=== PATIENT | female | born 1995 | race Caucasian/White ===

== ENCOUNTER 2018-03-20 02:25 | Observation (INO) ==
[2018-03-20] MEDS ORDERED: Ondansetron 4 MG/2 ML VIAL IVP ONE (02:31)
--- NOTE | 2018-03-20 02:32 | Emergency Department Note ---
Disposition Clinical Impression: Ankle dislocation Qualifiers: Encounter type: initial encounter Laterality: right Qualified Code(s): S93.04XA - Dislocation of right ankle joint, initial encounter Ankle syndesmosis disruption Qualifiers: Encounter type: initial encounter Laterality: right Qualified Code(s): S93.431A - Sprain of tibiofibular ligament of right ankle, initial encounter Closed fibular fracture Qualifiers: Encounter type: initial encounter Fibula location: shaft Fracture morphology: unspecified fracture morphology Laterality: right Qualified Code(s): S82.401A - Unspecified fracture of shaft of right fibula, initial encounter for closed fracture Disposition: Admitted As Inpatient Condition: Fair Time of Disposition: 06:07 Lower Extremity Injury HPI - General Chief Complaint: ED Extremity Injury, Lower Stated Complaint: right ankle injury Time Seen by Provider: 03/20/18 02:26 Source: patient Mode of arrival: ambulatory Limitations: no limitations Nursing Notes Reviewed: Yes Vital Signs Reviewed: Yes - History of Present Illness HPI Narrative: Patient is a 23-year-old female who presents to [facility] ED with a chief complaint of ankle pain on the right foot. States she walked out of the bar and fell. Denies any head injury or loss of consciousness. She had been drinking tonight. 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 Past Medical History - Past Medical History Attestation: Yes The following information was validated with the patient. 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 syndrome, other - Social History Smoking Status: Current every day smoker Smokeless Tobacco Status: No Alcohol use: Reports: occasionally Drug use: Reports: marijuana Physical Exam - General Limitations: no limitations General appearance: alert - Head Head exam: atraumatic, normocephalic, normal inspection - Eye Eye exam: Present: normal appearance, PERRL, EOMI - ENT ENT exam: normal exam, normal oropharynx, mucous membranes moist - Neck Neck exam: Present: normal inspection, full ROM, trachea midline - Chest Chest inspection: Present: normal inspection, symmetric chest wall rise - Respiratory Respiratory exam: Present: normal lung sounds bilaterally - Cardiovascular Cardiovascular exam: Present: normal rhythm, tachycardia - Abdominal Exam Abdominal exam: Present: soft, Non-Tender. Absent: tenderness, distention, guarding, rebound, rigidity - Expanded Lower Extremity Exam Lower leg exam: Present: tenderness (over fibular head) Ankle exam: Present: deformity, dislocation. Absent: abrasion, erythema Neurovascular/Tendon exam: Present: normal capillary refill. Absent: pulse deficit Gait: not tested/not observed - Back Exam Back exam: Present: normal inspection, full ROM. Absent: tenderness - Neurological Exam Neurological exam: Present: alert, oriented X3 - Psychiatric Psychiatric exam: Present: normal affect, normal mood - Skin Skin exam: Present: warm, dry, intact, normal color Course Course Narrative: Patient seen and examined. Right ankle deformity. Patient does have tenderness over the fibular head. We will get tib-fib and ankle x-rays of the right lower extremity. Fentanyl ordered for pain and Zofran for nausea. No other injury elsewhere. - Reevaluation(s) Reevaluation #1: Procedural sedation was done with respiratory therapy at the bedside. Propofol was used. Patient's ankle was reduced successfully without difficulty. She is placed in a long leg splint. Case was discussed with orthopedic Dr. Reinoso who will see the patient in consultation. States he is planning on doing surgery on her tomorrow. Time: 06:06 Vital Signs Temperature 97.6 F 03/20/18 02:26 Pulse Rate 100 03/20/18 02:26 Respiratory Rate 20 03/20/18 02:26 Blood Pressure 115/90 03/20/18 02:26 O2 Sat by Pulse Oximetry 99 03/20/18 02:26 Temperature 98.2 F 03/20/18 05:54 Pulse Rate 88 03/20/18 05:54 Respiratory Rate 16 03/20/18 05:54 Blood Pressure 109/68 03/20/18 05:54 O2 Sat by Pulse Oximetry 98 03/20/18 05:54 Oxygen Delivery Oxygen Delivery [0431] Room Air Oxygen Delivery [0428] Room Air Oxygen Delivery [0424] Room Air Oxygen Delivery [0421] Room Air Oxygen Delivery Room Air Procedures - Orthopedic Joint Reduction Joint #1 Consent Obtained: verbal consent Time Out Performed: Yes Side: right Joint Reduction Location: ankle ASA Classification: CLASS I-Normal, healthy patient Analgesia: procedural sedation Technique used: traction/counter-traction Post-reduction neuro exam: intact Post-reduction vascular: intact Post Reduction X-Ray Obtained: Yes Post Reduction X-Ray Results: reduced Splint Applied: Yes Patient Tolerated Procedure: well Extremity Injury, Lower - Medical Records Medical records reviewed: Yes I reviewed the patient's medical records. - Radiology Data Radiology results reviewed: Yes I reviewed the patient's radiology results. Tibia/Fibula X-Ray 03/20/18 02:27 IMPRESSION: 1. Acute fracture of the mid to proximal fibula. 2. Lateral ankle dislocation with disruption of the ankle syndesmosis. D/ / Noel Dykes MD / Noel Dykes MD Interpreting Provider: Noel Dykes MD Ankle X-Ray 03/20/18 04:49 IMPRESSION: Significantly improved alignment at the ankle with no definite ankle fracture. D/ / Noel Dykes MD / Noel Dykes MD Interpreting Provider: Noel Dykes MD
[2018-03-20] MEDS ORDERED: *HR* FentaNYL (PF) 100 MCG/2 ML VIAL IVP ONE ×2 (02:39→03:43)
[2018-03-20] MEDS ORDERED: *HR* Propofol 500 MG/50 ML BOTTLE IVP ONE (03:11)
[2018-03-20] MEDS ORDERED: *HR* FentaNYL (PF) 100 MCG/2 ML VIAL ONE (03:47)
--- NOTE | 2018-03-20 05:18 | Emergency Department Note ---
Disposition Clinical Impression: Ankle dislocation Qualifiers: Encounter type: initial encounter Laterality: right Qualified Code(s): S93.04XA - Dislocation of right ankle joint, initial encounter Ankle syndesmosis disruption Qualifiers: Encounter type: initial encounter Laterality: right Qualified Code(s): S93.431A - Sprain of tibiofibular ligament of right ankle, initial encounter Closed fibular fracture Qualifiers: Encounter type: initial encounter Fibula location: shaft Fracture morphology: unspecified fracture morphology Laterality: right Qualified Code(s): S82.401A - Unspecified fracture of shaft of right fibula, initial encounter for closed fracture Disposition: Admitted As Inpatient Condition: Fair General Adult HPI - General Chief complaint: ED Extremity Injury, Lower Stated complaint: right ankle injury Time Seen by Provider: 03/20/18 02:26 Source: patient Mode of arrival: ambulatory Limitations: no limitations Nursing Notes Reviewed: Yes Vital Signs Reviewed: Yes - History of Present Illness Pain Scale: 5 - Related Data Allergies Allergy/AdvReac Type Severity Reaction Status Date / Time No Known Allergies Allergy Verified 11/09/16 00:23 Past Medical History - Past Medical History Medical history: Reports: no medical history, other Psychiatric history: Reports: no psych 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, 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 - Social History Smoking Status: Current every day smoker Smokeless Tobacco Status: No Alcohol use: Reports: occasionally Drug use: Reports: marijuana Physical Exam - General Limitations: no limitations General appearance: alert Course Vital Signs Temperature 97.6 F 03/20/18 02:26 Pulse Rate 100 03/20/18 02:26 Respiratory Rate 20 03/20/18 02:26 Blood Pressure 115/90 03/20/18 02:26 O2 Sat by Pulse Oximetry 99 03/20/18 02:26 Temperature 98.2 F 03/20/18 05:54 Pulse Rate 88 03/20/18 05:54 Respiratory Rate 16 03/20/18 05:54 Blood Pressure 109/68 03/20/18 05:54 O2 Sat by Pulse Oximetry 98 03/20/18 05:54 Oxygen Delivery Oxygen Delivery [0431] Room Air Oxygen Delivery [0428] Room Air Oxygen Delivery [0424] Room Air Oxygen Delivery [0421] Room Air Oxygen Delivery Room Air Procedures - Procedural Sedation Procedure: Reduction of right ankle dislocation Indication: fracture/dislocation reduction H&P (including ROS) documented in medical record: Yes Previous reaction to sedatives/anesthetics: No Dentition: No loose teeth or bridges, full dentition Airway Assessment: Patient can open mouth completely, TMJ function normal, Micrognathia (under-bite, receding chin) absent, Neck with adequate range of motion Possible difficult airway: No ASA Classification: CLASS I-Normal, healthy patient Plan of Care: Pt appropriate candidate for procedure/moderate/conscious sedation , Risks/benefits of procedure/sedation discussed w/ patient/family, If not NPO; Risk of intake outweiged by necessity to perform procedure Preparation: baker pastry applied, pulse oximeter, capnometry used, suction/ airway equipment at bedside, IV secured IV Propofol Dose (mgs): 90 Patient Tolerated Procedure: well, no complications Attestation Statement - Attestation Attestation: I, Dwain Williamson MD, personally evaluated this patient and discussed their management with the resident physician. I reviewed the resident's note and agree with the documented findings, medical decision making, and plan of care. 23-year-old female presents to the emergency department with complaint of an acute injury to the right ankle. Patient had been at a bar drinking and tripped as she was leaving injuring her right ankle. She denies any other pain or injury. Patient arrived here by private vehicle and was brought back to the emergency department in a wheelchair with obvious dislocation deformity of the right ankle. On examination patient is a well-developed well-nourished well-appearing young female in no acute distress but does appear to be in moderate discomfort. She is alert and oriented 3. There is no cyanosis or diaphoresis. Breath sounds are clear and equal bilaterally. Heart regular with a mild tachycardia. Abdomen soft and nontender with normal bowel sounds. There is obvious lateral dislocation of the right ankle. There is tenderness over the lateral aspect of the right lower leg over the fibula. Skin is intact. Neurovascular function is intact distally with a strong dorsalis pedis pulse. Patient is able to wiggle her toes and has good sensation. X-ray showed a midshaft fracture of the right fibula. No fracture of the ankle but there was a lateral dislocation. Patient underwent procedural sedation with propofol and the ankle was reduced without difficulty or complication. Neurovascular function was intact postreduction. Patient was placed in a long-leg posterior splint. The orthopedist injection molding supervisor, Dr. Reinoso, was consulted and will consult on the patient in the morning. The hospitalist, Dr. Smith, was consulted and accepted admission of the patient.
[2018-03-20] MEDS ORDERED: Nicotine 21 MG PATCH.TD24 TD ONE (05:27)
[2018-03-20 06:53] LABS: Basophils # 0.1 K/mcL (0.0-0.2); Basophils % 0.3 %; Eosinophils % 0.1 %; Hematocrit 37.9 % (35.3-44.9); Hemoglobin 12.8 g/dL (11.5-15.4); Immature Granulocytes % 0.5 % (0-4); Lymphocytes % 12.2 %; Mean Corpuscular HGB Conc 33.8 g/dL (31.6-35.5); Mean Corpuscular Volume 91.8 fL (83.0-100.0); Mean Platelet Volume 10.5 fL (9.4-12.4); Monocytes # 0.8 K/mcL (0.0-1.3); Monocytes % 4.5 %; Neutrophils # 13.6 K/mcL (1.6-8.9); Platelet Count 350 K/mcL (140-400); Red Blood Count 4.13 M/mcL (3.82-4.97); Red Cell Distribution Width 13.5 % (11.5-14.5); Segmented Neutrophils % 82.4 %
[2018-03-20 07:01] LABS: Prothrombin Time 10.7 Seconds (9.4-12.1)
[2018-03-20 07:13] LABS: BUN/Creatinine Ratio 13 (6-26); Blood Urea Nitrogen 9 mg/dL (6-20); Calcium 8.8 mg/dL (8.6-10.3); Carbon Dioxide 17 mEq/L (23-29); Chloride 112 mEq/L (98-107); Glucose 90 mg/dL (70-105); Osmolality,Calculated 290 (280-300); Potassium 3.5 mEq/L (3.5-5.1); Sodium 141 mEq/L (136-145); eGFR For African Americans > 60 (> 60); eGFR For Non-African Americans > 60 (> 60)
[2018-03-20] MEDS ORDERED: Ketorolac 30 MG/ML VIAL IVP ONE (07:41)
--- NOTE | 2018-03-20 08:15 | Internal Med History&Physical ---
Date of Encounter: 03/20/18 Time of Encounter: 08:00 Internal Medicine - H&P: HPI Chief complaint: Right ankle pain Admitted From: Home Plans for Post Hospital Care: Home History of present illness: Patient is a 23-year-old female with no past medical significant history other than a 1 pack a day smoker who presents to the ER on 03/20/18 status post fall. Patient reports of being intoxicated and tripping over a log. When patient stood up she heard something snap. Patient was brought into the ER for evaluation. In the ER, imaging of the right tibial/fibula showed acute fracture of the mid to proximal fibula in addition to lateral ankle dislocation with disruption of ankle syndesmosis. She will be admitted to medical surgical floor for further management. Past Med Surg Social Fam HX - Past Medical History Medical history: no medical history, other Additional medical history: poly cystic ovarian syndrome Psychiatric history: no psych history - Past Surgical History Additional surgical history: IUD displaced; irregular bleeding. wrist surgery - Social History Smoking Status: Current every day smoker Packs per day: 1 Smokeless Tobacco Status: No Alcohol use: occasionally Drug use: marijuana - Family History Grandmother Hx Family Cardiac Disorders: Yes (Maternal grandmother) Internal Medicine - H&P: Meds 3 Allergy/AdvReac Type Severity Reaction Status Date / Time No Known Allergies Allergy Verified 11/09/16 00:23 All Systems PM: A 10-system review of systems was performed and is negative for pertinent findings except as documented above in the HPI. - Constitutional Vitals: Temp Pulse Resp BP Pulse Ox 98.2 F 88 16 109/68 98 03/20/18 05:54 03/20/18 05:54 03/20/18 05:54 03/20/18 05:54 03/20/18 05:54 General appearance: Present: A&O X 3, no acute distress - Eye Eye exam: Present: normal appearance, PERRL, conjuntiva pink, sclera anicteric Pupils: Present: PERRL - ENT ENT exam: Present: mucous membranes moist - Respiratory Respiratory exam: Present: CTAB. Absent: accessory muscle use, rales, rhonchi, wheezes - Cardiovascular Cardiovascular exam: Present: RRR, +S1, +S2. Absent: diastolic murmur, gallop, rubs, systolic murmur - GI/Abdominal GI/Abdominal exam: Present: normal bowel sounds, soft, no peritoneal signs. Absent: distended, tenderness - Extremities Exam Extremities exam: Absent: pedal edema - Neurological Exam Neurological exam: Present: oriented X3 - Psychiatric Psychiatric exam: Present: normal mood - Skin Skin exam: Present: normal color Internal Med - H&P Results - Labs CBC & Chem 7: 03/20/18 06:33 03/20/18 06:33 Labs: Short CBC 03/20/18 Range/Units 06:33 WBC 16.6 H (4.3-11.1) K/mcL Hgb 12.8 (11.5-15.4) g/dL Hct 37.9 (35.3-44.9) % Plt Count 350 (140-400) K/mcL Neutrophils # 13.6 H (1.6-8.9) K/mcL BMP 03/20/18 06:33 Sodium 141 Potassium 3.5 Chloride 112 H Carbon Dioxide 17 L BUN 9 Creatinine 0.71 Glucose 90 Calcium 8.8 - Assessment and plan (1) Closed fibular fracture Current Visit: Yes Status: Acute Assessment and plan: In the ER, imaging of the right tibial/fibula showed acute fracture of the mid to proximal fibula in addition to lateral ankle dislocation with disruption of ankle syndesmosis. Pain control with Toradol Orthopedics consulted and appreciate recommendations Qualifiers: Encounter type: initial encounter Fibula location: shaft Fracture morphology: unspecified fracture morphology Laterality: right Qualified Code (s): S82.401A - Unspecified fracture of shaft of right fibula, initial encounter for closed fracture (2) Ankle dislocation Current Visit: Yes Status: Acute Assessment and plan: Imaging as above Qualifiers: Encounter type: initial encounter Laterality: right Qualified Code(s): S93.04XA - Dislocation of right ankle joint, initial encounter (3) Ankle syndesmosis disruption Current Visit: Yes Status: Acute Assessment and plan: As above Qualifiers: Encounter type: initial encounter Laterality: right Qualified Code(s): S93.431A - Sprain of tibiofibular ligament of right ankle, initial encounter (4) Smoker Current Visit: Yes Status: Acute Assessment and plan: Smoking cessation (5) DVT prophylaxis Current Visit: Yes Status: Acute Assessment and plan: Patient is low risk - Time Spent With Patient Total time spent is greater than 50% in coordination of care (as documented) at patient's floor/unit and/or counseling patient:
[2018-03-20] MEDS ORDERED: Naloxone 0.4 MG/ML INJ IVP PRN (08:31)
[2018-03-20] MEDS ORDERED: *HR* HYDROcodone/Acet 5/325 mg TABLET PO ONE (09:18)
[2018-03-20] MEDS ORDERED: *HR* HYDROcodone/Acet 5/325 mg TABLET PO PRN ×2 (11:30→16:31)
[2018-03-20] MEDS: Ketorolac 30 MG/ML VIAL IVP PRN ×2 (13:51→20:41)
[2018-03-20] MEDS ORDERED: hydrOXYzine pamoate 25 MG CAPSULE PO PRN (16:30)
[2018-03-20] MEDS ORDERED: ceFAZolin 2,000 MG in Water for inj. (sterile) 20 ML 10 ML IVP ONE (16:51)
--- NOTE | 2018-03-20 16:55 | Orthopedic Consult Note ---
Date of Encounter: 03/20/18 Time of Encounter: 16:15 History of Present Illness Chief complaint: Left ankle pain HPI: Ms. 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 She states that she felt her ankle or leg snap. She had immediate pain and was able to ambulate. She was brought to the emergency room and [facility] x-rays revealed a dislocation of the right ankle with a fracture of the midshaft of the fibula. The dislocation was reduced to an improved position. Patient is admitted for further evaluation and management. I reviewed the patient's medical record including history and physical examination as well as laboratory and x-ray data. Pertinent orthopedic examination reveals the right lower extremity in a long posterior splint. Sensory exam is intact to the toes and including the first webspace. Exam is limited due to the splint. Injury x-rays revealed a slightly comminuted midshaft fracture of the fibula with widening of the syndesmosis distally and a lateral tibiotalar dislocation. This was reduced to improve the position of the continues to be marked widening of the medial ankle mortise. Impression: Right syndesmosis and ankle mortise disruption with midshaft fibular fracture Recommendation I discussed with the patient and family that I would recommend surgical intervention in the form of a open stabilization procedure of the syndesmosis. Also discussed that there is a distinct possibility that the deltoid ligament has been torn and may be impinging upon the medial side of the ankle mortise preventing accurate reduction. We discussed the surgical procedure including but not limited to the potential risks and complications of bleeding infection blood clots nerve injury stiffness malunion nonunion and need for additional surgery. Patient understands she is at high risk for developing posttraumatic arthritis. Patient did sign informed consent for the surgery. Anticipate proceeding tomorrow when operating time is available. Thank you for allowing me to see and care for Ms. Chadwick. Sincerely, Chance Reinoso,DO Past Med Surg Social Fam HX - Past Medical History Medical history: no medical history, other Additional medical history: poly cystic ovarian syndrome Psychiatric history: no psych history - Past Surgical History Additional surgical history: IUD displaced; irregular bleeding. wrist surgery - Social History Smoking Status: Current every day smoker Packs per day: 1 Smokeless Tobacco Status: No Alcohol use: occasionally Drug use: marijuana - Family History Grandmother Hx Family Cardiac Disorders: Yes (Maternal grandmother) Medications and Allergies No Known Home Drugs 03/20/18 [History] 3 Allergy/AdvReac Type Severity Reaction Status Date / Time No Known Allergies Allergy Verified 03/20/18 10:50 All Systems Reviewed: The remainder of the systems were reviewed and are negative Physical Exam - Constitutional Vitals: Temp Pulse Resp BP Pulse Ox 98.0 F 81 15 120/76 98 03/20/18 15:45 03/20/18 15:45 03/20/18 15:45 03/20/18 15:45 03/20/18 15:45 Results - Labs Result Diagrams: 03/20/18 06:33 03/20/18 06:33 Labs: Abnormal lab results WBC 16.6 K/mcL (4.3-11.1) H 03/20/18 06:33 Neutrophils # 13.6 K/mcL (1.6-8.9) H 03/20/18 06:33 Chloride 112 mEq/L (98-107) H 03/20/18 06:33 Carbon Dioxide 17 mEq/L (23-29) L 03/20/18 06:33 H & H 03/20/18 Range/Units 06:33 Hgb 12.8 (11.5-15.4) g/dL Hct 37.9 (35.3-44.9) % All other labs normal. - Diagnostic results Ankle/Foot x-ray: image reviewed Consult Discharge Plan - Plan Referrals: Kinjal Daniels MD [Primary Care Provider] -
[2018-03-20] MEDS: *HR* Meperidine 25 MG/ML SYRINGE IVP PRN ×2 (17:40→20:40)
[2018-03-20] MEDS: Ondansetron 4 MG/2 ML VIAL IVP PRN (17:40)
[2018-03-20] MEDS: *HR* HYDROcodone/Acet 10/325 mg TABLET PO PRN ×2 (19:28→23:48)
[2018-03-20] MEDS ORDERED: *HR* Promethazine 25 MG/ML VIAL IVP PRN (21:26)
[2018-03-21] MEDS ORDERED: Melatonin 3 MG TABLET PO PRN (00:08)
[2018-03-21] MEDS: *HR* HYDROcodone/Acet 10/325 mg TABLET PO PRN ×4 (05:03→20:34)
[2018-03-21 05:11] LABS: Basophils % 0.3 %; Eosinophils # 0.2 K/mcL (0.0-0.6); Eosinophils % 1.6 %; Hematocrit 36.4 % (35.3-44.9); Hemoglobin 11.8 g/dL (11.5-15.4); Immature Granulocytes % 0.3 % (0-4); Lymphocytes # 3.2 K/mcL (0.6-4.6); Lymphocytes % 27.1 %; Mean Corpuscular HGB Conc 32.4 g/dL (31.6-35.5); Mean Corpuscular Hemoglobin 30.5 pg (28.0-33.3); Mean Corpuscular Volume 94.1 fL (83.0-100.0); Mean Platelet Volume 10.5 fL (9.4-12.4); Monocytes % 8.8 %; Neutrophils # 7.2 K/mcL (1.6-8.9); Platelet Count 308 K/mcL (140-400); Red Blood Count 3.87 M/mcL (3.82-4.97); Red Cell Distribution Width 13.8 % (11.5-14.5); Segmented Neutrophils % 61.9 %
[2018-03-21 05:35] LABS: BUN/Creatinine Ratio 15 (6-26); Blood Urea Nitrogen 12 mg/dL (6-20); Calcium 9.1 mg/dL (8.6-10.3); Carbon Dioxide 25 mEq/L (23-29); Chloride 107 mEq/L (98-107); Glucose 79 mg/dL (70-105); Osmolality,Calculated 285 (280-300); Potassium 3.6 mEq/L (3.5-5.1); Sodium 138 mEq/L (136-145); eGFR For African Americans > 60 (> 60); eGFR For Non-African Americans > 60 (> 60)
[2018-03-21] MEDS: Ondansetron 4 MG/2 ML VIAL IVP PRN ×2 (07:59→15:30)
[2018-03-21] MEDS: *HR* Meperidine 25 MG/ML SYRINGE IVP PRN ×4 (07:59→22:26)
--- NOTE | 2018-03-21 10:09 | Anesthesia Evaluation PreOp ---
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 Other Medical History: GERD, Other (polycystic ovaries) Anesthesia History: No Prior Anesthetic Complications, Past Anesthesia Test: Negative (03/20/2018) Alcohol Use: occasionally, heavy Drug use: marijuana Medications and Allergies No Known Home Drugs 03/20/18 [History] 3 Allergy/AdvReac Type Severity Reaction Status Date / Time No Known Allergies Allergy Verified 03/20/18 10:50 - Meds/Allergy Pre-op Review Medications Reviewed: Yes Allergies Reviewed: Yes Beta Blockers on Current Med List: No Anesthesia Results - Labs 03/21/18 04:45 03/21/18 04:45 Laboratory Tests 03/20/18 03/20/18 06:33 06:33 PT 10.7 INR 1.0 Beta HCG, Quant 1 - Imaging EKG: report reviewed (07/04/2016 SINUS RHYTHM WITH MARKED SINUS ARRHYTHMIA) Anesthesia Exam Vital Signs/O2 Sat, Most Current Temp Pulse Resp BP Pulse Ox 97.5 F L 55 17 117/59 99 03/21/18 06:45 03/21/18 06:45 03/21/18 06:45 03/21/18 06:45 03/21/18 06:45 Height: 5'1''/1.55m Weight: 191 lbs/86.9 kg NPO (# of Hours): 8 Pain Scale: 7 (right ankle) Pain Scale Used: Numeric (1 - 10) - HEENT Pupil (Motor): EOMI Mallampati: II Teeth: Normal (chipped upper right molar) Oral Opening: Greater than 3 - 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
--- NOTE | 2018-03-21 11:00 | Internal Med Progress Note ---
Date of Encounter: 03/21/18 Time of Encounter: 11:00 - Assessment and plan (1) Closed fibular fracture Current Visit: Yes Status: Acute Assessment and plan: In the ER, imaging of the right tibial/fibula showed acute fracture of the mid to proximal fibula in addition to lateral ankle dislocation with disruption of ankle syndesmosis. Pain control with Toradol PRN. Orthopedic surgery following and plan for open stabilization of syndesmosis procedure today Qualifiers: Encounter type: initial encounter Fibula location: shaft Fracture morphology: unspecified fracture morphology Laterality: right Qualified Code (s): S82.401A - Unspecified fracture of shaft of right fibula, initial encounter for closed fracture (2) Ankle dislocation Current Visit: Yes Status: Acute Assessment and plan: Seen by orthopedic surgery. Plan for surgery today Qualifiers: Encounter type: initial encounter Laterality: right Qualified Code(s): S93.04XA - Dislocation of right ankle joint, initial encounter (3) Ankle syndesmosis disruption Current Visit: Yes Status: Acute Assessment and plan: see#1 Qualifiers: Encounter type: initial encounter Laterality: right Qualified Code(s): S93.431A - Sprain of tibiofibular ligament of right ankle, initial encounter (4) Smoker Current Visit: Yes Status: Acute Assessment and plan: Smoking cessation (5) DVT prophylaxis Current Visit: Yes Status: Acute Assessment and plan: Patient is low risk - Time Spent With Patient Total time spent is greater than 50% in coordination of care (as documented) at patient's floor/unit and/or counseling patient: - Subjective Interval history: no acute events overnight - Constitutional Vitals: Temp Pulse Resp BP Pulse Ox 97.5 F L 55 17 117/59 99 03/21/18 06:45 03/21/18 06:45 03/21/18 06:45 03/21/18 06:45 03/21/18 06:45 General appearance: Present: A&O X 3, no acute distress - Head Head exam: Present: atraumatic, normocephalic - Eye Eye exam: Present: PERRL, conjuntiva pink, sclera anicteric Pupils: Present: PERRL - Neck Neck exam general surgery: Present: supple, trachea midline. Absent: lymphadenopathy - Respiratory Respiratory exam: Present: CTAB. Absent: accessory muscle use, rales, rhonchi, wheezes - Cardiovascular Cardiovascular exam: Present: RRR, +S1, +S2. Absent: diastolic murmur, gallop, rubs, systolic murmur - GI/Abdominal GI/Abdominal exam: Present: normal bowel sounds, soft, no peritoneal signs. Absent: distended, tenderness - Extremities Exam Extremities exam: Present: warm, radial pulses palpable and symmetrical. Absent : calf tenderness, cyanotic, pedal edema Additional comments: left ankle fracture - Neurological Exam Neurological exam: Present: CN II-XII intact, oriented X3, no focal deficits. Absent: pronater drift, facial droop, speech deficit - Skin Skin exam: Present: dry, intact Internal Medicine: Result - Labs CBC & Chem 7: 03/21/18 04:45 03/21/18 04:45 Labs: Short CBC 03/21/18 Range/Units 04:45 WBC 11.7 H (4.3-11.1) K/mcL Hgb 11.8 (11.5-15.4) g/dL Hct 36.4 (35.3-44.9) % Plt Count 308 (140-400) K/mcL Neutrophils # 7.2 (1.6-8.9) K/mcL BMP 03/21/18 04:45 Sodium 138 Potassium 3.6 Chloride 107 Carbon Dioxide 25 BUN 12 Creatinine 0.81 Glucose 79 Calcium 9.1 - ABG Interpretation ABG results: PT/INR, D-dimer PT 10.7 Seconds (9.4-12.1) 03/20/18 06:33 - VTE Reasons for not Prescribing Prophylaxis: Medical contraindication Documentation of Mechanical Device: Intermittent pneumatic compression device Consult Discharge Plan - Plan Referrals: Kinjal Daniels MD [Primary Care Provider] -
[2018-03-21] MEDS: Ketorolac 30 MG/ML VIAL IVP PRN ×2 (11:25→19:31)
[2018-03-21] MEDS ORDERED: ROPIVACAINE HCL/PF 0.5% 30 ML VIAL ONE (12:03)
[2018-03-21] MEDS ORDERED: Dexamethasone 4 MG/ML VIAL ONE ×2 (12:04→12:05)
[2018-03-21] MEDS ORDERED: *HR* Midazolam HCl 2 MG/2 ML VIAL ONE (12:05)
[2018-03-21] MEDS ORDERED: *HR* FentaNYL (PF) 100 MCG/2 ML VIAL ONE ×2 (12:05→13:01)
[2018-03-21] MEDS ORDERED: *HR* Propofol 200 MG/20 ML VIAL IVP ONE (12:05)
[2018-03-21] MEDS ORDERED: Lidocaine -MPF 2% 2 ML VIAL ONE (12:05)
[2018-03-21] MEDS ORDERED: *HR* Succinylcholine 200 MG/10 ML VIAL IVP ONE (12:05)
[2018-03-21] MEDS ORDERED: Lidocaine -MPF 4% 5 ML AMPUL ONE (12:05)
[2018-03-21] MEDS ORDERED: Ondansetron 4 MG/2 ML VIAL ONE (12:05)
[2018-03-21] MEDS ORDERED: Scopolamine Patch 1.5 MG PATCH.TD72 TD ONE ×2 (12:13→15:19)
[2018-03-21] MEDS ORDERED: Albuterol 2.5 MG/3 ML NEBULIZER ONE (12:14)
[2018-03-21] MEDS ORDERED: Albuterol 2.5 MG/3 ML NEBULIZER IH ONE (12:14)
[2018-03-21] MEDS ORDERED: *HR* HYDROmorphone (PF) 1 MG/ML SYRINGE IVP PRN ×2 (13:06→15:19)
[2018-03-21] MEDS ORDERED: *HR* Promethazine 25 MG/ML VIAL IVP PRN ×3 (13:06→15:19)
--- NOTE | 2018-03-21 13:09 | Anesthesia Procedures ---
Date of Encounter: 03/21/18 Time of Encounter: 12:05 Procedures: Anesthesia - Nerve Block Procedure Date: 03/21/18 Time: 12:05 Allergies/Adv Reactions: nkda Pre-op Diagnosis: right ankle fracture Surgical Procedure: right ankle syndesmosis repair Checklist: Correct Patient Identifier, Correct procedure, History checked Correct side: Right Blood Thinner: No Monitor Applied: EKG, BP, Pulse Oximetry Supplemental Oxygen via Nasal Cannula (L/min): 2 Sedation: Versed (mg): 2 Sedation: Fentanyl (mcg): 100 Indication: Post Op Analgesia Pre-op Neuro Deficits: No Block Type: Femoral, Popliteal Catheter placed: No Sterile Technique: Yes Ultrasound used: Yes Anatomy identified: Yes Visual spread of Local: Yes Neuro Stimulation: Yes Nerve Stimulator Range: 0.2 - 0.4 mA Blood on Needle Aspiration: No Smooth Injection of Local: Yes Pain with Injection of Local: No Prep: Chlorhexadine Needle: 21 x 100 mm Stimuplex Local: Ropivacaine (8mg decadron X2 -femoral and pop block ) Volume (cc): 60 Number of Attempts: 1 Complications: None/effective block Vitals: Vital Signs - Last 8 Hours Temp Pulse Resp BP Pulse Ox 03/21/18 11:50 97.4 F L 57 18 116/78 98 03/21/18 06:45 97.5 F L 55 17 117/59 99 Intake and Output 03/20/18 03/21/18 03/21/18 23:59 07:59 15:59 Intake Total 450 / 450 Balance 450 / 450 Intake: Oral 450 / 450 Other: # Voids 1 1 Weight 86.9 kg Comments: per. dr. marr request
[2018-03-21] MEDS ORDERED: *HR* PHENYLEPHRINE 1,000 MCG/10 ML SYRINGE IVP ONE (13:16)
[2018-03-21] MEDS ORDERED: Ketorolac 30 MG/ML VIAL ONE (13:47)
[2018-03-21] MEDS ORDERED: Bacitracin/PolymyxinB OINT 14.17 GM TUBE TP ONE (14:15)
--- NOTE | 2018-03-21 15:12 | Anesthesia Evaluation Post Op ---
Date of Encounter: 03/21/18 Time of Encounter: 15:11 - Vital Signs Vital Signs: Vital Signs/O2 Sat, Most Current Temp Pulse Resp BP Pulse Ox 98.2 F 73 16 125/76 98 03/21/18 15:07 03/21/18 15:07 03/21/18 15:07 03/21/18 15:07 03/21/18 15:07 - Lungs Lungs: Clear Ascult./Percussion - Airway Airway: Non-obstructed - Cardiovascular Regular Rate - Mental Status Mental Status: Alert & Oriented, Answers Appropriately - Pain Pain Scale: 0 Pain Scale used: Numeric (1 - 10) - Nausea Vomiting Nausea Vomiting: Not Present - Hydration Hydration: Tolerates oral liquids, Has not voided - Discharge PostOp Status: Transfer Patient to floor
[2018-03-21] MEDS ORDERED: Naloxone 0.4 MG/ML INJ IVP PRN (15:19)
[2018-03-21] MEDS ORDERED: hydrOXYzine pamoate 25 MG CAPSULE PO PRN (15:19)
--- NOTE | 2018-03-21 15:46 | Operative Note ---
Date of procedure: 03/21/18 Pre-op diagnosis: 1.Dislocation right ankle with syndesmosis and mortise disruption 2. Right Post-op diagnosis: same (1. Dislocation right ankle with syndesmosis and mortise disruption 2. Right fibular shaft fracture 3. Right Deltoid ligament rupture) Procedure: 1. Open reduction of right ankle mortise disruption/ankle dislocation 2. Open syndesmosis repair right ankle 3. Open deltoid ligament repair right ankle 4. Fluoroscopic guidance for right ankle surgery Implants: Arthrex 4 hole locking third tubular plate and 23.5 mm cortical screws with 2 ankle fixation devices, a 4.75 mm swivel lock anchor with 2 fiber link and one # 2 FiberWire Complications: None Anesthesia: ROLFA Surgeon: Chance Reinoso Was there an entry level administrative assistant present: No Estimated blood loss (cc): 15 Tourniquet Time (Minutes): 84 Specimen: None Condition: stable Disposition: PACU Procedure in Detail: Gross findings: Initial injury x-rays revealed a right ankle dislocation with a midshaft fibular fracture. There was marked widening of the distal syndesmosis and persistent widening of the medial mortise. Reduction x-rays showed marked improvement in the midshaft fibular fracture and improved syndesmosis spacing, there was however persistent marked widening of the medial mortise. Intraoperative findings revealed tremendous amount of instability of the distal tibiofibular joint. The initial surgery was an attempt to stabilize the syndesmosis. Plate was applied to the lateral malleolus however the ankle could not be reduced due to the suspicion for a deltoid ligament rupture. The medial side was explored and in fact the deltoid had completely avulsed from the medial malleolus with both the deep and superficial bands impinging in the medial joint space preventing adequate ankle reduction. Several small articular surface fragments were noted within the joint. These appear to be coming from the posterior aspect of the medial malleolus. The surface of the talus and the tibial plafond appeared to be grossly intact. Tremendous amount of soft tissue injury was noted. Once the deltoid was extracted from the joint the syndesmosis could be repaired with 2 tight rope type devices. The deltoid was re-repaired to the medial malleolus utilizing 3 separate FiberWire suture and a single swivel lock anchor placed in the medial malleolus. Excellent alignment of the ankle mortise was noted. Medial stability was excellent. Procedure: Patient was taken to the operating room. In the preoperative holding area the patient had a popliteal nerve block administered by anesthesia for postoperative pain management. The patient was then transferred to the operating room table. Patient was now administered general anesthesia. Once adequate level of anesthesia had been obtained the right lower extremity was prepped and draped in normal standard fashion with a tourniquet placed about the proximal calf. Leg was exsanguinated utilizing Esmarch and tourniquet was inflated. Lateral ankle incision was created. Dissection was carried through the subcutaneous tissues. Limited hemostasis with electrocautery was required. Limited subperiosteal dissection of the lateral distal fibular was required. The 4 hole plate was selected and positioned against the fibula with location identified and verified with fluoroscopy. A proximal and distal 3.5 mm lag screw were then placed. With fluoroscopic visualization attempts were made to reduce the dislocation. The syndesmosis appeared to reduce but persistent widening of the medial side of the ankle was noted. For this reason a medial ankle incision was created. Dissection was carried through subtendinous tissues with a large amount of fracture hematoma identified. Massive soft tissue injury was noted. Complete evulsion of the deltoid ligament from the medial side of the ankle was noted. The joint was irrigated. The deltoid was retracted out of the medial side of the ankle joint and the ankle was now able to be reduced. This is verified with fluoroscopy. At this time the deltoid was tagged with 2 fiber Link suture 1 in the anterior and one in the posterior aspect of the deep component and then a #2 FiberWire suture was placed in the superficial layer. This allowed the deltoid to be retracted and preparation for repair. A drill hole and punch was then utilized to create the anchor site in the area of the medial malleolus where the ligament had been avulsed. The ankle joint was copious irrigated. Several small fragments of articular surface were removed. At this time the deltoid was reflected out of the joint and the ankle was reduced. A large periarticular clamp was then used to maintain the ankle reduction. Multiple fluoroscopic views are taken verified that the distal tibiofibular joint was reduced and that the ankle mortise was restored. At this time to ankle tight rope fixation devices were placed through the 2 middle holes in the plate and extending across the tibia. One was placed slightly anterior and one was placed nearly lateral to medial. The endo- buttons were set on the medial side and then the tight rope was "walked down" with the button seating in the hole in the plate. Excellent fixation was noted. Attention was then turned to the medial side where the 3 suture in the deltoid were passed through the tip of the swivel lock anchor which was then seated and inserted with excellent purchase in bone. The periarticular clamp was removed. Stable reduction of the ankle with excellent stability was restored. There appeared to be some laxity towards the lateral ankle ligaments but these were not addressed at this time. At this times wounds were irrigated with saline solution and then attention paid to closure. Deep tissues were closed with 0 undyed Vicryl followed by immediate subcutaneous tissue approximation with multiple inverted interrupted 2 -0 undyed Vicryl and 3-0 undyed Vicryl as needed. Skin edges were then approximated with stainless steel clips. Sterile dressings consisting of bacitracin Adaptic 4 x 4 sterile cast padding were applied. A posterior fiberglass splint was then applied and secured with Aravind wraps. Tourniquet was deflated. Patient was now awakened from anesthesia, extubated, and transferred to the hospital bed and then transported to the postanesthesia care unit in stable and satisfactory condition. All sponge and needle evidence for counts are correct. No specimens are sent for pathology.
[2018-03-21] MEDS: *HR* Enoxaparin 30 MG/0.3 ML SYRINGE SQ SCH (17:54)
[2018-03-21] MEDS: Nicotine 21 MG PATCH.TD24 TD SCH (19:26)
[2018-03-21] MEDS: ceFAZolin 2,000 MG in Water for inj. (sterile) 20 ML 10 ML IVP SCH (20:35)
[2018-03-21] MEDS: Melatonin 3 MG TABLET PO PRN (22:42)
[2018-03-21] MEDS ORDERED: *HR* OxyCODONE/APAP 5/325 TABLET PO PRN (22:45)
[2018-03-22] MEDS: *HR* Meperidine 25 MG/ML SYRINGE IVP PRN ×4 (01:46→16:07)
[2018-03-22] MEDS: *HR* OxyCODONE/APAP 10/325 TABLET PO PRN ×6 (03:50→23:50)
[2018-03-22] MEDS: Ondansetron 4 MG/2 ML VIAL IVP PRN ×2 (03:50→18:56)
[2018-03-22] MEDS: ceFAZolin 2,000 MG in Water for inj. (sterile) 20 ML 10 ML IVP SCH (06:25)
[2018-03-22] MEDS: *HR* Enoxaparin 30 MG/0.3 ML SYRINGE SQ SCH ×2 (06:26→17:13)
[2018-03-22] MEDS: Nicotine 21 MG PATCH.TD24 TD SCH (08:15)
[2018-03-22] MEDS: Ketorolac 30 MG/ML VIAL IVP PRN ×2 (09:59→18:06)
--- NOTE | 2018-03-22 11:22 | Internal Med Progress Note ---
Date of Encounter: 03/22/18 Time of Encounter: 11:20 - Assessment and plan (1) Closed fibular fracture Current Visit: Yes Status: Acute Assessment and plan: In the ER, imaging of the right tibial/fibula showed acute fracture of the mid to proximal fibula in addition to lateral ankle dislocation with disruption of ankle syndesmosis. Pain control with Toradol PRN. Orthopedic surgery following. Patient is s/p o pen reduction of right ankle mortise disruption/ankle dislocation, Open syndesmosis repair right ankle, Open deltoid ligament repair right ankle and Fluoroscopic guidance for right ankle surgery on 03/21. Follow ortho and PT recs Qualifiers: Encounter type: initial encounter Fibula location: shaft Fracture morphology: unspecified fracture morphology Laterality: right Qualified Code (s): S82.401A - Unspecified fracture of shaft of right fibula, initial encounter for closed fracture (2) Ankle dislocation Current Visit: Yes Status: Acute Assessment and plan: Seen by orthopedic surgery. s/p surgery on 03/21 Qualifiers: Encounter type: initial encounter Laterality: right Qualified Code(s): S93.04XA - Dislocation of right ankle joint, initial encounter (3) Ankle syndesmosis disruption Current Visit: Yes Status: Acute Assessment and plan: see#1 Qualifiers: Encounter type: initial encounter Laterality: right Qualified Code(s): S93.431A - Sprain of tibiofibular ligament of right ankle, initial encounter (4) Smoker Current Visit: Yes Status: Acute Assessment and plan: Smoking cessation. Nicotine patch (5) DVT prophylaxis Current Visit: Yes Status: Acute Assessment and plan: On lovenox sc q 12h - Time Spent With Patient Total time spent is greater than 50% in coordination of care (as documented) at patient's floor/unit and/or counseling patient: - Subjective Interval history: Had ankle surgery in last 24hrs - Constitutional Vitals: Temp Pulse Resp BP Pulse Ox 98.0 F 57 15 119/70 99 03/22/18 08:04 03/22/18 08:04 03/22/18 08:04 03/22/18 08:04 03/22/18 08:30 General appearance: Present: A&O X 3, no acute distress - Head Head exam: Present: atraumatic, normocephalic - Eye Eye exam: Present: PERRL, conjuntiva pink, sclera anicteric Pupils: Present: PERRL - Neck Neck exam general surgery: Present: supple, trachea midline. Absent: lymphadenopathy - Respiratory Respiratory exam: Present: CTAB. Absent: accessory muscle use, rales, rhonchi, wheezes - Cardiovascular Cardiovascular exam: Present: RRR, +S1, +S2. Absent: diastolic murmur, gallop, rubs, systolic murmur - GI/Abdominal GI/Abdominal exam: Present: normal bowel sounds, soft, no peritoneal signs. Absent: distended, tenderness - Extremities Exam Extremities exam: Present: warm, radial pulses palpable and symmetrical. Absent : calf tenderness, cyanotic, pedal edema - Neurological Exam Neurological exam: Present: CN II-XII intact, oriented X3, no focal deficits. Absent: pronater drift, facial droop, speech deficit - Skin Skin exam: Present: dry, intact Internal Medicine: Result - Labs CBC & Chem 7: 03/21/18 04:45 03/21/18 04:45 - ABG Interpretation ABG results: PT/INR, D-dimer PT 10.7 Seconds (9.4-12.1) 03/20/18 06:33 - Impressions Impressions Fluoroscopy 03/21/18 14:40 IMPRESSION: Intraprocedural fluoroscopic spot images as above. See separate procedure report for more information. D/ / Tyler Stevenson MD / Tyler Stevenson MD Interpreting Provider: Tyler Stevenson MD - VTE Reasons for not Prescribing Prophylaxis: Medical contraindication Documentation of Mechanical Device: Intermittent pneumatic compression device Consult Discharge Plan - Plan Referrals: Kinjal Daniels MD [Primary Care Provider] -
[2018-03-22] MEDS: OXYCODONE Oral CONC 10 MG/0.5 ML ORAL.SYG SL PRN ×2 (18:55→22:23)
[2018-03-22] MEDS: Melatonin 3 MG TABLET PO PRN (23:52)
--- NOTE | 2018-03-23 00:49 | Orthopedics Progress Note ---
Date of Encounter: 03/23/18 Time of Encounter: 00:47 Subjective Principal diagnosis: Right ankle dislocation, status post repair Interval history: 03/22/2018. Patient is postop day #1 after having had an open reduction of the ankle due to an incarcerated deltoid ligament followed by open syndesmosis fixation and medial deltoid repair. She having quite a bit of pain. Had been doing well until the nerve block wore off and then her pain was quite dramatic. Has had some ambulation thus far. Vital signs are stable. Patient is afebrile. Dressings are dry. Sensation is intact. Impression: POD #1 right ankle syndesmosis repair and deltoid repair Recommendation: Continue with pain management. Patient needs to maintain strict nonweightbearing in light of the complexity of her injuries. Orthopedic status is stable. Objective Vital signs: Vital Signs Temp Pulse Resp BP Pulse Ox 03/22/18 23:26 98.5 F 63 14 116/70 99 03/22/18 20:32 97.6 F 74 15 123/75 100 03/22/18 20:31 100 03/22/18 14:30 98.8 F 73 16 126/87 99 03/22/18 11:29 98.5 F 78 17 129/81 98 03/22/18 08:30 99 03/22/18 08:04 98.0 F 57 15 119/70 99 03/22/18 06:42 120/75 03/22/18 03:49 98.1 F 69 14 104/70 99 03/22/18 01:55 135/72 Intake and Output 03/22/18 03/22/18 03/23/18 15:59 23:59 07:59 Intake Total 600 / 600 Balance 600 / 600 Intake: Oral 600 / 600 Other: # Voids 3 2 - Labs CBC & BMP: 03/21/18 04:45 03/21/18 04:45 Labs: Abnormal lab results WBC 11.7 K/mcL (4.3-11.1) H 03/21/18 04:45 - VTE Reasons for not Prescribing Prophylaxis: Medical contraindication Documentation of Mechanical Device: Venous foot pump, device Consult Discharge Plan - Plan Referrals: Kinjal Daniels MD [Primary Care Provider] -
[2018-03-23] MEDS: traMADol 50 MG TABLET PO PRN ×3 (01:21→20:10)
[2018-03-23] MEDS: Ketorolac 30 MG/ML VIAL IVP PRN ×3 (02:48→19:12)
[2018-03-23] MEDS: *HR* Enoxaparin 30 MG/0.3 ML SYRINGE SQ SCH ×2 (05:41→16:44)
[2018-03-23] MEDS: *HR* OxyCODONE/APAP 10/325 TABLET PO PRN ×4 (07:36→21:34)
[2018-03-23] MEDS: Nicotine 21 MG PATCH.TD24 TD SCH (07:37)
[2018-03-23] MEDS: OXYCODONE Oral CONC 10 MG/0.5 ML ORAL.SYG SL PRN ×2 (14:56→18:10)
--- NOTE | 2018-03-23 15:44 | Internal Med Progress Note ---
Date of Encounter: 03/23/18 Time of Encounter: 11:45 - Assessment and plan (1) Ankle dislocation Current Visit: Yes Status: Acute Assessment and plan: X-ray shows acute fracture of mid to proximal fibula, lateral ankle dislocation with destruction of the ankle syndesmosis. Orthopedic surgery on board, status post open reduction of ankle dislocation, open syndesmosis repair. Continue pain management with when necessary IV Toradol and oral Percocet. PT/ OT recommendations appreciated- no needs at discharge; medically stable for discharge, awaiting appropriate pain control; Qualifiers: Encounter type: initial encounter Laterality: right Qualified Code(s): S93.04XA - Dislocation of right ankle joint, initial encounter (2) Closed fibular fracture Current Visit: Yes Status: Acute Qualifiers: Encounter type: initial encounter Fibula location: shaft Fracture morphology: unspecified fracture morphology Laterality: right Qualified Code (s): S82.401A - Unspecified fracture of shaft of right fibula, initial encounter for closed fracture (3) Smoker Current Visit: Yes Status: Chronic (4) DVT prophylaxis Current Visit: Yes Status: Acute - Time Spent With Patient Total time spent is greater than 50% in coordination of care (as documented) at patient's floor/unit and/or counseling patient: - Subjective Interval history: Reports significant right ankle pain and swelling. Continues to require both IV and oral narcotic pain medications. Reports flatus, no bowel movements yet. Underwent ankle surgery yesterday. - Constitutional Vitals: Temp Pulse Resp BP Pulse Ox 97.6 F 65 16 114/79 99 03/23/18 11:31 03/23/18 11:31 03/23/18 11:31 03/23/18 11:31 03/23/18 11:31 General appearance: Present: A&O X 3, answers questions appropriately - Respiratory Respiratory exam: Present: CTAB. Absent: accessory muscle use, rales, rhonchi, wheezes - Cardiovascular Cardiovascular exam: Present: RRR, +S1, +S2. Absent: diastolic murmur, gallop, rubs, systolic murmur - Extremities Exam Extremities exam: Present: warm, radial pulses palpable and symmetrical. Absent : calf tenderness, cyanotic, pedal edema Additional comments: right ankle in surgical dressing Internal Medicine: Result - Labs CBC & Chem 7: 03/21/18 04:45 03/21/18 04:45 - ABG Interpretation ABG results: PT/INR, D-dimer PT 10.7 Seconds (9.4-12.1) 03/20/18 06:33 - VTE Reasons for not Prescribing Prophylaxis: Medical contraindication Documentation of Mechanical Device: Graduated compression elastic hosiery Consult Discharge Plan - Plan Referrals: Kinjal Daniels MD [Primary Care Provider] -
[2018-03-23] MEDS: Sennosides/Docusate Sodium TABLET PO SCH (20:10)
[2018-03-23] MEDS: Gabapentin 300 MG CAPSULE PO SCH (20:10)
--- NOTE | 2018-03-23 20:25 | Orthopedics Progress Note ---
Date of Encounter: 03/23/18 Time of Encounter: 20:23 Subjective Principal diagnosis: Right ankle dislocation, status post repair Interval history: 03/22/2018. Patient is postop day #1 after having had an open reduction of the ankle due to an incarcerated deltoid ligament followed by open syndesmosis fixation and medial deltoid repair. She having quite a bit of pain. Had been doing well until the nerve block wore off and then her pain was quite dramatic. Has had some ambulation thus far. Vital signs are stable. Patient is afebrile. Dressings are dry. Sensation is intact. Impression: POD #1 right ankle syndesmosis repair and deltoid repair Recommendation: Continue with pain management. Patient needs to maintain strict nonweightbearing in light of the complexity of her injuries. Orthopedic status is stable. 03/23/2018. Patient postop day #2 right ankle surgery. She still having quite a bit of pain. Pain management has been an issue. Discussed with the patient that we will not make her pain-free for a goal is to allow her to function with an adequate pain management program. Limited ambulation thus far. Vital signs are stable. Patient is afebrile. Dressings remain intact clean and dry. Distal neurosensory exam is intact. Impression: POD #2 right ankle syndesmosis and deltoid repair. Recommendations: Continue trying to optimize pain management. We will add gabapentin to see if this offer some additional relief. Patient must maintain strict nonweightbearing and continue with elevation. If patient is discharged prior to my seeing her tomorrow, will need follow-up in about 2 weeks' time with me. Maintain nonweightbearing and continue with elevation of the extremity. Patient will need not only pain management but VTE prophylaxis. Objective Vital signs: Vital Signs Temp Pulse Resp BP Pulse Ox 03/23/18 18:54 97.7 F 64 16 103/60 99 03/23/18 16:17 97.9 F 74 16 108/60 98 03/23/18 11:31 97.6 F 65 16 114/79 99 03/23/18 07:32 97.7 F 61 16 107/65 99 03/23/18 03:09 98.2 F 66 15 84/51 95 03/22/18 23:26 98.5 F 63 14 116/70 99 03/22/18 20:32 97.6 F 74 15 123/75 100 03/22/18 20:31 100 Intake and Output 03/23/18 03/23/18 03/23/18 07:59 15:59 23:59 Other: # Voids 1 3 1 - Labs CBC & BMP: 03/21/18 04:45 03/21/18 04:45 Labs: Abnormal lab results WBC 11.7 K/mcL (4.3-11.1) H 03/21/18 04:45 - VTE Reasons for not Prescribing Prophylaxis: Medical contraindication Documentation of Mechanical Device: Venous foot pump, device Consult Discharge Plan - Plan Referrals: Kinjal Daniels MD [Primary Care Provider] -
[2018-03-24] MEDS: OXYCODONE Oral CONC 10 MG/0.5 ML ORAL.SYG SL PRN ×2 (00:07→11:55)
[2018-03-24] MEDS: *HR* Enoxaparin 30 MG/0.3 ML SYRINGE SQ SCH (06:49)
[2018-03-24] MEDS: *HR* OxyCODONE/APAP 10/325 TABLET PO PRN ×3 (06:49→15:13)
[2018-03-24] MEDS: traMADol 50 MG TABLET PO PRN (07:43)
[2018-03-24] MEDS: Nicotine 21 MG PATCH.TD24 TD SCH (07:43)
[2018-03-24] MEDS: Sennosides/Docusate Sodium TABLET PO SCH (07:43)
[2018-03-24] MEDS: Gabapentin 300 MG CAPSULE PO SCH ×2 (07:43→13:29)
[2018-03-24] MEDS: Ketorolac 30 MG/ML VIAL IVP PRN (09:09)
[2018-03-24 11:00] VITALS: BP 127/64
--- NOTE | 2018-03-24 13:43 | Discharge Summary ---
- NOTES TO OUTPATIENT PROVIDER Notes to Outpatient Provider: right ankle fracture and dislocation s/p surgery Orders not resulted at time of discharge: Pending orders 03/21/18 12:22 US anesthesia pain block [US] Routine 03/21/18 14:40 XR ankle complete min 3V RT [XR] Routine Date of Encounter: 03/24/18 Time of Encounter: 13:41 - Discharge Diagnosis (1) Ankle dislocation Priority: Primary Status: Acute Qualifiers: Encounter type: initial encounter Laterality: right Qualified Code(s): S93.04XA - Dislocation of right ankle joint, initial encounter (2) Closed fibular fracture Priority: Primary Status: Acute Qualifiers: Encounter type: initial encounter Fibula location: shaft Fracture morphology: unspecified fracture morphology Laterality: right Qualified Code (s): S82.401A - Unspecified fracture of shaft of right fibula, initial encounter for closed fracture (3) Smoker Priority: Secondary Status: Chronic (4) DVT prophylaxis Priority: Primary Status: Acute Hospital course: Ms. Chadwick is a 23 year old female with no significant medical history, who was admitted with right ankle pain following a mechanical fall. Right ankle x- ray showed acute fracture of mid to proximal fibula, lateral ankle dislocation with destruction of the ankle syndesmosis. Orthopedic surgery was consulted and patient underwent open reduction off right ankle dislocation, repair of right ankle syndesmosis. Patient tolerated the procedure well, however had a prolonged hospital course due to uncontrolled and disproportionate pain. She is currently medically stable for discharge. Case discussed with orthopedics, stable from the standpoint for discharge on pain control and DVT prophylaxis with aspirin. Patient is encouraged to follow up with orthopedics in 1-2 weeks. Patient was educated about strict nonweightbearing on right leg and to keep right leg elevated as much as possible. Physical and occupational therapy evaluation was done, no needs were identified. Discharge discussed with: patient, nurse - Time Spent with Patient Total time spent providing and/or coordinating discharge services: Greater than 30 minutes (45 min) - Discharge Medications Prescriptions: Aspirin 325 mg PO BID #28 tablet Gabapentin [Neurontin] 300 mg PO TID #45 capsule OxyCODONE/APAP 10/325 [Percocet 10/325 MG] 1 each PO Q6H PRN 7 Days #15 tablet PRN Reason: Severe Pain Sennosides/Docusate Sodium [Senna Plus] 2 each PO BID PRN #30 tablet PRN Reason: Constipation Home Medications: Aspirin 325 mg PO BID #28 tablet 03/24/18 [Rx] Gabapentin [Neurontin] 300 mg PO TID #45 capsule 03/24/18 [Rx] OxyCODONE/APAP 10/325 [Percocet 10/325 MG] 1 each PO Q6H PRN 7 Days #15 tablet 03/24/18 [Rx] Sennosides/Docusate Sodium [Senna Plus] 2 each PO BID PRN #30 tablet 03/24/18 [ Rx] Allergies/Adverse Reactions: 3 Allergy/AdvReac Type Severity Reaction Status Date / Time No Known Allergies Allergy Verified 03/20/18 10:50 Date of admission: 03/20/18 05:17 Primary care physician: Kinjal Daniels Consults: 03/21/18 15:19 Consult to Physical Therapy [CONS] Routine Comment: Evaluate, develop and implement POC Reason for Consult: ankle Does patient have active BEDREST order?: No Is patient medically & hemodynamically stable?: Yes Consult to Electronics Engineering Professor [CONS] Routine Reason for SW Consult: dc Discharging clinician: Dariana Rosado Anticipated date of discharge: 03/24/18 - Constitutional Vitals: Temp Pulse Resp BP Pulse Ox 98.1 F 78 16 127/64 97 03/24/18 10:58 03/24/18 10:58 03/24/18 10:58 03/24/18 10:58 03/24/18 10:58 General appearance: Present: A&O X 3, answers questions appropriately - Cardiovascular Cardiovascular exam: Present: RRR, +S1, +S2. Absent: diastolic murmur, gallop, rubs, systolic murmur - Extremities Exam Extremities exam: Present: warm, radial pulses palpable and symmetrical. Absent : calf tenderness, cyanotic, pedal edema Additional comments: right leg in surgical dressing and JUSTO wrap - Patient Status Disposition: Home, Self-Care Condition: Good Functional capacity at discharge: uses cane/walker (crutches) Overall status at discharge: patient is progressing back to baseline - Discharge Instructions Follow Up With: Kinjal Daniels MD [Primary Care Provider] - Additional Instructions: Please report any excessive redness, fever, chills, odor or drainage to physician, Dr. Reinoso [phone]. Follow up with Dr. Reinoso within 1-2 weeks. Return to ER if you notice any worsening or returning of symptoms. Leave splint in place. - Diet and Activity Activity: resume usual activities as tolerated (strict non-weight bearing to right leg; leg elevation as much as possible) Diet: advance to your usual diet, regular diet - VTE Reasons for not Prescribing Prophylaxis: Medical contraindication Documentation of Mechanical Device: Graduated compression elastic hosiery
== END 2018-03-24 15:37 | disposition home or self-care (01) ==
LOC: 3NENU 02:25 → EMEROO 02:25 → SUATTDRO 05:17 → 3NENU 05:45
PROVIDERS: ADMIT Internal Medicine; ATTEND Internal Medicine